=== PATIENT | male | born 1970 | race African-American/Black ===

== ENCOUNTER 2023-03-23 03:28 | Emergency (ER) | payer SELFPAY ==
[2023-03-23 03:42] VITALS: RESP 20; TEMP 96.2
[2023-03-23] MEDS ORDERED: Sodium Chloride 0.9% 1000 ML 1,000 ML IV SCH (03:45)
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
[2023-03-23 04:02] LABS: Absolute Neutrophil Ct (ANC) 2.18 x10^3/uL (1.4-6.9); BASOPHIL % 1.1 % (0.0-0.4); Basophil (Absolute #) 0.05 x10^3/uL (0-0.4); Eosinophil % 3.8 % (0.00-5.0); Eosinophil (Absolute #) 0.18 x10^3/uL (0-0.5); Hematocrit 36.3 % (42-50); Hemoglobin 12.6 g/dL (12.5-18.0); IMMATURE GRAN # 0.01 x10^3u/L (0.00-0.03); IMMATURE GRAN % 0.2 % (0.00-0.4); Lymphocyte (Absolute #) 1.67 x10^3/uL (1.0-4.6); Lymphocytes % 35.2 % (24.0-44.0); Mean Cell Volume 84.8 fL (78-100); Mean Corpuscular Hemoglobin 29.4 pg (26-32); Mean Corpuscular Hgb Concent. 34.7 g/dL (32-36); Mean Platelet Volume 10.4 fL (7.5-11.0); Monocyte (Absolute #) 0.65 x10^3/uL (0.0-1.3); Monocytes % 13.7 % (0.0-12.0); Platelet Count 205 x10^3/uL (150-450); Red Blood Count 4.28 x10^6/uL (4.1-5.6); Red Cell Distribution Width 12.6 % (11.5-14.0); White Blood Count 4.7 x10^3/uL (4.0-10.5)
[2023-03-23] MEDS ORDERED: Sodium Chloride 0.9% 1000 ML 1,000 ML ONE (04:11)
[2023-03-23 04:15] LABS: ALBUMIN 4.6 g/dL (3.5-5.0); ALKALINE PHOSPHATASE 49 U/L (38-126); ANION GAP 13.8 MEQ/L (5-15); BLOOD UREA NITROGEN 22 mg/dL (9-20); CHLORIDE 106 mmol/L (98-107); Calcium 9.4 mg/dL (8.4-10.2); Carbon Dioxide 23 mmol/L (22-30); Creatinine 1 1.37 mg/dL (0.66-1.25); ETHYL ALCOHOL < 10 mg/dL (0-10); Glucose 115 mg/dL (74-106); Potassium 4.2 mmol/L (3.5-5.1); SGOT/AST 36 U/L (17-59); SGPT/ALT 35 U/L (0-50); SODIUM 139 mmol/L (137-145); Total Protein 6.9 g/dL (6.3-8.2)
[2023-03-23 04:19] LABS: Amphetamine,Urine NEGATIVE (NEGATIVE); Barbiturate,Urine NEGATIVE (NEGATIVE); Benzodiazepine,Urine NEGATIVE (NEGATIVE); Cocaine,Urine NEGATIVE (NEGATIVE); Methadone,Urine NEGATIVE (NEGATIVE); Opiate,Urine NEGATIVE (NEGATIVE); PCP,Urine NEGATIVE (NEGATIVE); THC,Urine NEGATIVE (NEGATIVE)
[2023-03-23] MEDS ORDERED: TORAdol 30 mg Injection IV ONE (04:35)
[2023-03-23] MEDS ORDERED: TORAdol 30 mg Injection ONE (04:36)
[2023-03-23 05:07] VITALS: O2SAT 98
[2023-03-23 05:10] VITALS: PULSE 63
[2023-03-23 07:02] VITALS: BP 127/50
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
--- NOTE | 2023-03-24 11:13 | XRAY ---
CLINICAL HISTORY:trauma COMPARISON:None TECHNIQUE:Multiple enhanced axial sections were acquired through the chest and upper abdomen. In addition, coronal and sagittal reformatted images were also acquired. Total DLP is 1976mgy-cm and CTDI is 15.79mgy. FINDINGS: There is a soft tissue density nodule identified in the posterior basal segment of the left lower lobe approximately measuring 1.4 x 1.0 cm( TS x AP). Subsegmental basilar atelectatic changes were seen. No evidence of parenchymal consolidation or cavitary lesion was identified. No interstitial prominence seen in either lung dobson. No evidence of pleural effusion or pneumothorax on either side. The trachea and main stem bronchi appear patent. The visualized esophagus appears normal. Normal enhancing mediastinal vessels noted. On mediastinal window settings, no evidence of mediastinal or hilar lymphadenopathy seen. Included sections through upper abdomen show normal liver, spleen, adrenals and visualized both kidneys. On appropriate bone window settings, Mild degenerative changes noted in the spine. Fractures of the 9th and 10th ribs on the left is noted without displacement. IMPRESSION: 1. Fractures of the 9th and 10th ribs on the left. 2. No evidence of parenchymal contusion or hemorrhage 3. A soft tissue density nodule was noted in the posterior basal segment of the left lower lobe approximately measuring 1.4x 1.0 cm. According to the Fleischner Society recommendation follow-up With CT scan at 3 months is advised, The [facility] ER office was called at [phone] at 04:52 AM TUBE STATION ATTENDANT, 03/23/2023 and the results were verbally communicated with Byron Guerin. Electronically Signed by: Manpreet Pandey MD. (03/23/2023 04:58:07 TUBE STATION ATTENDANT)
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
--- NOTE | 2023-03-24 16:45 | XRAY ---
CLINICAL HISTORY:trauma L-spine COMPARISON:None. TECHNIQUES:Multiple axial images of CT thoracolumbar spine without contrast were submitted in the bone window with coronal and sagittal reformatted images. FINDINGS: CT examination of the lower thoracic and lumbar spines reveals no definite fracture line or subluxation is seen. Spondylitic changes with marginal osteophytes. density is seen. Maintained curvature of the thoracic spine is seen. Maintained vertebral body height and alignment are seen. Intact intervertebral disc spaces. No paravertebral soft tissue swelling is seen. IMPRESSION: 1. No definite fracture line or subluxation is seen. 2. Spondylitic changes. Electronically Signed by: Manpreet Pandey MD. (03/23/2023 05:01:03 HOME CARE ASSISTANT)
--- NOTE | 2023-03-24 16:45 | XRAY ---
CLINICAL HISTORY:trauma T-spine COMPARISON:None. TECHNIQUE:Multiple axial images of CT thoracolumbar spine without contrast were submitted in the bone window with coronal and sagittal reformatted images. FINDINGS: CT examination of the lower thoracic and lumbar spines reveals no definite fracture line or subluxation is seen. Spondylitic changes with marginal osteophytes. density is seen. Maintained curvature of the thoracic spine is seen. Maintained vertebral body height and alignment are seen. Intact intervertebral disc spaces. No paravertebral soft tissue swelling is seen. IMPRESSION: 1. No definite fracture line or subluxation is seen. 2. Spondylitic changes. Electronically Signed by: Manpreet Pandey MD. (03/23/2023 05:01:03 POWER PLANT INSTALLER)
--- NOTE | 2023-03-25 07:20 | XRAY ---
CLINICAL HISTORY:TRAUMA COMPARISON:None. TECHNIQUES:CT of the abdomen and pelvis was performed with axial images as well as sagittal and coronal reconstruction images without intravenous contrast. FINDINGS: The visualized lung bases appear unremarkable. The liver is enlarged, measures 19 cm at craniocaudal diameter, no intrahepatic or extrahepatic bile duct dilation. Unremarkable appearing gallbladder with no stones wall thickening or pericholecystic inflammatory changes or fluid. Unremarkable appearing pancreas. No pancreatic mass or ductal dilatation is seen. Unremarkable appearing spleen. The adrenal glands are normal. The kidneys appear unremarkable with no stones, cysts masses or hydronephrosis. The ureters are normal with no stones. Unremarkable abdominal aorta without specific evidence of aneurysm or dissection. IVC is normal. The visualized distal esophagus appears unremarkable. The stomach appears unremarkable. Unremarkable appearing duodenum. Small Bowel and colon are non-distended with no abnormality No free air and no ascites. No free intraperitoneal air is seen. The bladder is unremarkable with no stones. Fat-containing umbilical hernia. The appendix is normal. Retrolisthesis of L5 over S1 vertebra. Narrowing of L5-S1 disc space. Vertebral spondylotic changes. IMPRESSION: 1. Hepatomegaly. 2. Fat-containing umbilical hernia. 3. Vertebral spondylotic changes, retrolisthesis of L5 vertebra and narrowing of L5-S1 disc space. Electronically Signed by: Manpreet Pandey MD. (03/23/2023 04:23:47 DISPOSAL MAN)
--- NOTE | 2023-03-25 07:34 | XRAY ---
CLINICAL HISTORY:TRAUMA COMPARISON:None. TECHNIQUES:Multiple enhanced axial sections were acquired through the chest and upper abdomen. In addition, coronal and sagittal reformatted images were also acquired. Total DLP is 1976mgy-cm and CTDI is 15.79mgy. FINDINGS: There is a soft tissue density nodule identified in the posterior basal segment of the left lower lobe approximately measuring 1.4 x 1.0 cm( TS x AP). Subsegmental basilar atelectatic changes were seen. No evidence of parenchymal consolidation or cavitary lesion was identified. No interstitial prominence seen in either lung dobson. No evidence of pleural effusion or pneumothorax on either side. The trachea and main stem bronchi appear patent. The visualized esophagus appears normal. Normal enhancing mediastinal vessels noted. On mediastinal window settings, no evidence of mediastinal or hilar lymphadenopathy seen. Included sections through upper abdomen show normal liver, spleen, adrenals and visualized both kidneys. On appropriate bone window settings, Mild degenerative changes noted in the spine. Fractures of the 9th and 10th ribs on the left is noted without displacement. IMPRESSION: 1. Fractures of the 9th and 10th ribs on the left. 2. No evidence of parenchymal contusion or hemorrhage 3. A soft tissue density nodule was noted in the posterior basal segment of the left lower lobe approximately measuring 1.4x 1.0 cm. According to the Fleischner Society recommendation follow-up With CT scan at 3 months is advised, The [facility] ER office was called at [phone] at 04:52 AM CANE SPLICER, 03/23/2023 and the results were verbally communicated with Byron Guerin. Electronically Signed by: Manpreet Pandey MD. (03/23/2023 04:58:07 CANE SPLICER)
--- NOTE | 2023-03-25 07:38 | XRAY ---
CLINICAL HISTORY:trauma COMPARISON:None. TECHNIQUES:CT of the abdomen and pelvis was performed with axial images as well as sagittal and coronal reconstruction images with intravenous contrast. FINDINGS: Left lower lung lobe peripheral pleural-based nodule measures 1.2 X 1 cm. Fracture of the left ninth rib laterally and possible subtle fracture of the left 10th rib. Old healed fracture of the right 11th rib with periosteal reaction. Liver is enlarged, measures 18 cm reflecting a slight diffuse hypodensity suggestive of fatty infiltration, no intrahepatic or extrahepatic bile duct dilation. Unremarkable appearing gallbladder with no stones wall thickening or pericholecystic inflammatory changes or fluid. Unremarkable appearing pancreas. No pancreatic mass or ductal dilatation is seen. Unremarkable appearing spleen. The adrenal glands are normal. The kidneys appear unremarkable with no stones, cysts masses or hydronephrosis. The ureters are normal with no stones. Unremarkable abdominal aorta without specific evidence of aneurysm or dissection. IVC is normal. The visualized distal esophagus appears unremarkable. The stomach appears unremarkable. Unremarkable appearing duodenum. Small Bowel are non-distended with no abnormality Sigmoid diverticuli without evidence of diverticulitis. No free air and no ascites. No free intraperitoneal air is seen. Bladder is unremarkable with no stones. No abdominal wall pathology is seen. Multiple mesenteric lymph nodes, subcentimeteric, likely reactive. Vertebral spondylitic changes. IMPRESSION: No evidence of organ or vascular injury. Left lower lung lobe peripheral pleural-based 1.2 x 1 cm nodule. Fracture of the left ninth rib laterally and possible subtle fracture of the left 10th rib. Old healed fracture of the right 11th rib. Hepatomegaly with hepatic steatosis. Sigmoid diverticuli without evidence of diverticulitis. Electronically Signed by: Manpreet Pandey MD. (03/23/2023 04:45:03 DIRECTOR REPORT)
--- NOTE | 2023-03-25 07:44 | XRAY ---
CLINICAL HISTORY:trauma COMPARISON:None. TECHNIQUES:Axial non-contrast CT scan of the brain was performed from the skull base to the high parietal region. FINDINGS: The visualized brain parenchyma shows no abnormality. Faint bilateral basal ganglia calcifications. Hernandez-white matter differentiation is maintained. No intra-cerebral or extra-axial hematoma. No midline shifts or deformity. Normal size and configuration of the cerebral ventricles. Normal CT appearance of the posterior fossa structures namely the cerebellar hemispheres, brainstem and cerebellar peduncles. The IACs are unremarkable. The cerebello-pontine angles are clear. The pituitary gland, the pineal gland, the optic chiasm is unremarkable. The osseous structures in the skull base are unremarkable. No definite calvarium fractures. The scanned paranasal sinuses show deviated nasal septum to the right side with small bony spur formation and hypertrophied left nasal turbinates. IMPRESSION: 1. No calvarial fractures or intra-cerebral hematomas. 2. Unremarkable study. Electronically Signed by: Manpreet Pandey MD. (03/23/2023 04:57:06 WINDOW REPAIRER)
== END 2023-03-23 07:21 | disposition home or self-care (01) ==
LOC: ED 03:28
DX: Z04.1 Encounter for examination and observation following transport accident (principal); S22.42XA Multiple fractures of ribs, left side, initial encounter for closed fracture; V48.5XXA Car driver injured in noncollision transport accident in traffic accident, initial encounter; R91.1 Solitary pulmonary nodule; M62.838 Other muscle spasm; R79.89 Other specified abnormal findings of blood chemistry; M54.50 Low back pain, unspecified; M54.6 Pain in thoracic spine; M54.2 Cervicalgia; M25.512 Pain in left shoulder; Z79.84 Long term (current) use of oral hypoglycemic drugs; Z79.899 Other long term (current) drug therapy
CPT/HCPCS: 36000; 36415; 70450; 71260; 72125; 73030; 74177; 76376; 80053; 80307; 82077; 84484; 85025; 93005; 93041; 94760; 96374; 99285; J1885